=== PATIENT | female | born 1960 | race Caucasian/White ===

== ENCOUNTER → 2017-09-27 | Outpatient (CLI) | payer OTHER | LOC: FSGY 11:16 | PROVIDERS: ATTEND Family Medicine | DX: M79.89 Other specified soft tissue disorders (principal); M19.041 Primary osteoarthritis, right hand ==

== ENCOUNTER 2017-09-29 18:46 | Day surgery (SDC) | payer OTHER ==
[~2017-09-29 18:46] MED LIST: BACITRACIN 50,000 UNITS/10 ML SYR IRR ONE; BUPIVACAINE 0.5% 30 ML SDV ONE
[2017-09-29 19:02] VITALS: PULSE 70; RESP 18
--- NOTE | 2017-09-29 19:29 | PDANEPAE ---
ANE History of Present Illness 57 yo female with infected R thumb for I&D. ANE Past Medical History - Cardiovascular History Cardiovascular History Comment: hyperlipidemia, hyper TG - Pulmonary History Hx Oxygen in Use at Home: No Hx Sleep Apnea: Yes Pulmonary History Comment: On ESV, CPAP 9 cm H2O - Endocrine History Hx Diabetes: No Hypothyroid: No Obesity: severe - Neurological & Psychiatric Hx Neurological / Psychiatric History Comment: depression - Chronic Pain History Chronic Pain: No ANE Review of Systems Review of systems is: negative Review of Systems: - Systems Respiratory: Reports: no symptoms Skin: Reports: other (infection in R thumb) ANE Patient History - Allergies Allergies/Adverse Reactions: gatifloxacin [From Tequin] Allergy (Verified 02/22/11 18:00) - Home Medications Home Medications: Aspirin 81mg PO DAILY 02/22/11 [Last Taken 09/29/17] SIMVASTATIN PO DAILY 02/22/11 [Last Taken 09/29/17] Trilipix PO DAILY MDD 150 02/22/11 [Last Taken 09/29/17] Wellbutrin Sr PO MDD 150 02/22/11 [Last Taken 09/29/17] Keflex 500 PO QID 09/29/17 [Last Taken 09/29/17] - NPO status NPO Since - Liquids (Date): 09/29/17 NPO Since - Liquids (Time): 12:30 NPO Since - Solids (Date): 09/29/17 NPO Since - Solids (Time): 12:30 - Anes Hx Anes Hx: post operative nausea - Smoking Hx Smoking Status: Former smoker - Alcohol Use Alcohol Use: Occasionally (2/week) - Family Anes Hx Family Anes Hx: neg - N/A ANE Labs/Vital Signs - Vital Signs Blood Pressure: 158/92 Heart Rate: 70 Respiratory Rate: 18 O2 Sat (%): 99 Height: 165.1 cm Weight: 102.058 kg ANE Physical Exam - Airway Neck exam: FROM Mallampati Score: Class 2 Mouth exam: small mouth opening - Pulmonary Pulmonary: clear to auscultation - Cardiovascular Cardiovascular: regular rate and rhythym ANE Anesthesia Plan Regional Anesthesia: single shot NB (radial nerve and median nerve blocks)
[2017-09-29] MEDS ORDERED: LR 1,000 ML IV ONE (19:48)
[2017-09-29] MEDS ORDERED: ceFAZolin 2 GM/DEXTROSE 100 ML IV ONE (20:10)
[2017-09-29] MEDS ORDERED: ceFAZolin 2 GM/SWFI 20 ML SYR IVP ONE (20:16)
[2017-09-29] MEDS ORDERED: ceFAZolin 2 GM/SWFI 2 GM/20 ML SYR IVP ONE (20:30)
[2017-09-29] MEDS ORDERED: DEXAMETHASONE 4 MG/ML VIAL ONE (20:43)
[2017-09-29] MEDS ORDERED: ROPIVACAINE HCL 150 MG/30 ML INJ ONE (20:43)
[2017-09-29] MEDS ORDERED: LIDOCAINE 2% 5 ML SDV ONE (20:43)
[2017-09-29] MEDS ORDERED: fentaNYL 100 MCG/2 ML INJ ONE ×2 (20:45→21:06)
[2017-09-29] MEDS ORDERED: LIDO/EPI 2%** Not for Epidural 20 ML MDV ONE (21:26)
[2017-09-29] MEDS ORDERED: ACETAMINOPHEN 500 MG TAB PO PRN (22:23)
[2017-09-29] MEDS ORDERED: ALBUTEROL 3 ML DEYVIAL IH PRN (22:23)
[2017-09-29] MEDS ORDERED: ONDANSETRON 4 MG/2 ML VIAL IVP PRN (22:23)
[2017-09-29] MEDS ORDERED: LR 500 ML IV PRN (22:23)
[2017-09-29] MEDS ORDERED: OXYCODONE/APAP 5/325 TAB PO PRN (22:23)
[2017-09-29] MEDS ORDERED: NALOXONE HCL 0.4 MG/ML INJ IVP PRN (22:23)
--- NOTE | 2017-09-29 22:25 | POSTANESTH ---
Post Anesthetic Evaluation Cardiovascular Status: Similar to Pre-Op Cond (Pt's BP still elevated. Pt states her BP typically runs in the 140s/80s. Pt counselled to F/U with her PCP in the next few months for a BP recheck.) Respiratory Status: Normal, Stable Level of Consciousness/Mental Status: Can Participate in Eval, Alert and Oriented Pain Control: Adequate, Prn Tx Ordered Nausea/Vomiting Control: Adequate, Prn Tx Ordered Complications Possibly Related to Anesthesia: None Noted
[2017-09-29] MEDS ORDERED: ONDANSETRON 4 MG/2 ML VIAL ONE (22:42)
[2017-09-29 22:49] VITALS: BP 154/92
[2017-09-29 22:50] VITALS: TEMP 97.7
[2017-09-29] MEDS ORDERED: OXYCODONE/APAP 5/325 TAB ONE (22:53)
[2017-09-29] MEDS ORDERED: OXYCODONE/APAP 5/325MG PREPACK#4 BTL TAKEHOME ONE ×2 (23:07→23:12)
[2017-09-29 23:11] VITALS: O2SAT 94
--- NOTE | 2017-09-30 09:05 | GOP ---
[f rep st] OPERATIVE REPORT DATE OF OPERATION: 09/29/2017 SURGEON: Clay Carbone MD ANESTHESIA: Radial and median nerve blocks performed by the anesthesia team as well as local. PREOPERATIVE DIAGNOSIS: Right thumb abscess. POSTOPERATIVE DIAGNOSIS: Right thumb cellulitis, possible abscess. PROCEDURE PERFORMED: Right thumb abscess incision and drainage. FINDINGS: ESTIMATED BLOOD LOSS: 5 cc. INDICATIONS: This past Wednesday, the patient began noticing some increasing pain, swelling, and eryt efrain of her right thumb that was worsening. The following Wednesday, she called into her physician and was prescribed some p.o. antibiotics. The condition did not improve. On the following day, she was presented to Urgent Care, was given a dose of IV Rocephin. The following day, again, this time prese nted to the office, was seen by our PA, Autumn Knowles, had some improvement in her symptoms after the first dose, was given another dose of IV Rocephin. The following day, on the , she saw me. I ex amined the thumb. She had some improvement in the erythema at the margins; however, there was an are a in her volar thumb at about the level of the proximal phalanx over the flexion crease that appeared to have demarcated. There was an indurated, erythematous area that was very suspicious for an absce ss which would explain her lack of response to IV antibiotics. She had difficulty with any flexion o f the IP joint due to pain, thus, with a suspicion for abscess, closed space infection, she was indic ated for operative treatment. We discussed with her the risks and benefits of operative versus nonop erative treatment. This includes pain, bleeding, infection, damage to the surrounding structures, nu mbness, scarring, stiffness, need for further surgeries. The patient also has an area in her 1st web space that she described as painful and also had a suspicion for fluid collection there. As this wa s a suspicion for an abscess, plan for OR that same evening. DESCRIPTION OF PROCEDURE: Patient was seen in the preoperative holding area, consent was signed. Molina rgical site was marked. She was given opportunity to ask more questions, all her questions were answ ered. Block was performed by the anesthesia team. The patient was then taken to the operative suite . Care was taken to prep and drape the right upper extremity in the usual sterile fashion. Time-out was called out including surgical anesthesia team confirming the surgical site and procedure to be p erformed. IV antibiotics were not given until cultures were taken. I added some more Marcaine to molina pplement the block as well as some lidocaine with epinephrine over the volar thumb to prevent bleedin g. I then made an oblique incision over the level of P1 where there was the most fullness and suspec t an abscess and also to visualize the flexor tendon sheath to rule out any FTS. Dissected carefully down through the fat to the level of the flexor tendon sheath. I identified the neurovascular bundl es and protected these carefully. On entering the volar pulp space of the thumb, there was no purule nt material, just the abundant dishwater type fluid which is often present with cellulitis. Carefull y dissected distally into the pulp of the thumb for any felon. There was no pus there. I dissected ulnar and radial. No pus was found. There was a small opening in the flexor tendon sheath. Note th e flexor tendon sheath proximal to distal. There was no purulent material in the flexor tendon sheat h at all, thus, ruling out a flexor tenosynovitis. at this point, I then made a small incision in th e area of the 1st web space where there was also suspicion for abscess. I carefully dissected down i nto that area. Again, no purulent material was identified at this point. At this point, cultures we re taken from the thumb. IV antibiotics were given. I irrigated the area with about 1 L of saline w ith bacitracin. I then closed the incisions loosely with 4-0 nylon. A sterile dressing was applied, and patient taken to the PACU in stable condition. POSTOPERATIVE CONDITION: Stable. POSTOPERATIVE PLAN: I will have the patient start soaks on the . I added Bactrim to her antibio tic regimen. We will follow cultures, and I will see her on the to assess her progress. /[id number]/MODL
== END 2017-09-29 23:16 | disposition home or self-care (01) ==
LOC: FSGY 18:46
PROVIDERS: ATTEND Orthopaedic Surgery Hand Surgery
PROC: 0J9J0ZX Drainage of Right Hand Subcutaneous Tissue and Fascia, Open Approach, Diagnostic (ICD-10-PCS; principal; 2017-09-29)
DX: L02.511 Cutaneous abscess of right hand (principal); B95.61 Methicillin susceptible Staphylococcus aureus infection as the cause of diseases classified elsewhere; E78.5 Hyperlipidemia, unspecified
CPT/HCPCS: J0171; J0690; J1100; J2405; J2795; J3010